=== PATIENT | female | born 1970 | race Caucasian/White ===

== ENCOUNTER 2017-03-21 16:34 | Outpatient (CLI) | payer BC ==
--- NOTE | 2017-03-22 18:21 | Mammography Report ---
DIGITAL SCREENING MAMMOGRAM: 03/21/2017 CLINICAL INDICATION: A 46-year-old with history of late childbearing for screening. COMPARISON: 12/2013, 02/2012, 02/2011. TECHNIQUE: Routine CC and MLO projections as well as bilateral laterally exaggerated craniocaudal vi ews were obtained of the breasts. FINDINGS: Parenchymal tissue within both breasts is heterogeneously dense, which may lower the sensi tivity of mammography; however, there are no dominant masses, suspicious microcalcifications, or seco ndary signs of malignancy. In comparison to the previous studies, there are no significant changes. ASSESSMENT: NO MAMMOGRAPHIC EVIDENCE OF MALIGNANCY. NO SIGNIFICANT INTERVAL CHANGES. RECOMMENDATION: Screening mammography is recommended annually. BIRADS category 1 - negative. STANDARD QUALIFYING STATEMENTS 1. This examination was reviewed with the aid of Computed-Aided Detection (CAD). 2. A negative or benign imaging report should not delay biopsy if clinically suspicious findings are present. Consider surgical consultation if warranted. More than 5% of cancers are not identified b y imaging. 3. Dense breasts may obscure an underlying neoplasm. JOB #: [id number] EXT JOB #:[id number]
== END 2017-03-21 16:35 | disposition home or self-care (01) ==
LOC: DI 16:34
PROVIDERS: ATTEND Physician Assistant Medical
DX: Z12.31 Encounter for screening mammogram for malignant neoplasm of breast (principal)
CPT/HCPCS: 77067

== ENCOUNTER 2018-08-02 17:00 | Outpatient (CLI) | payer BC ==
--- NOTE | 2018-08-03 08:31 | Mammography Report ---
Reason: SCREENING MAMMO Procedure Date: 08/02/2018 Accession Number: [id number] / [id number] Procedure: [facility] - Screening Mammo w/Rodney CPT Code: FULL RESULT: EXAM: Screening Mammo w/Rodney DATE: 08/02/2018 5:23 PM CLINICAL HISTORY: Screening encounter. History of late childbearing. TECHNIQUE: Bilateral CC, laterally exaggerated CC, MLO views were obtained. COMPARISON: 03/21/2017 through 03/03/2011. FINDINGS: The breasts demonstrate heterogeneously dense fibroglandular parenchyma bilaterally. No suspicious masses, clustered microcalcifications, or regions of architectural distortion are identified. IMPRESSION: Negative examination RECOMMENDATION: Routine annual screening unless otherwise clinically indicated. BIRADS CATEGORY 1: Negative STANDARD QUALIFYING STATEMENTS: 1. This examination was not reviewed with the aid of Computer-Aided Detection (CAD). 2. A negative or benign imaging report should not delay biopsy if clinically suspicious findings are present. Consider surgical consultation if warrented. More than 5% of cancers are not identified by imaging. 3. Dense breasts may obscure an underlying neoplasm. 4. This examination was reviewed with the aid of 3D breast imaging (tomosynthesis).
== END 2018-08-02 17:01 | disposition home or self-care (01) ==
LOC: DI 17:00
DX: Z12.31 Encounter for screening mammogram for malignant neoplasm of breast (principal)
CPT/HCPCS: 77063; 77067

== ENCOUNTER 2020-02-20 16:57 | Outpatient (CLI) | payer BC ==
--- NOTE | 2020-02-21 08:55 | MRI Report ---
PROCEDURE: Lower Leg (Tib-Fib) RT W/O INDICATIONS: RIGHT LEG PAIN TECHNIQUE: Noncontrast coronal and sagittal T1 spin echo and STIR; axial T1 spin echo and T2 fast spin echo with fat saturation through the right lower leg. COMPARISON: None. FINDINGS: Image quality: Excellent. Bones: The visualized bone marrow demonstrates normal signal on all sequences. The overlying cortex appears intact. No fractures lines or intra-osseous lesions. Soft tissues: There is slightly increased T2 signal within medial periphery of distal medial head of gastrocnemius muscle on the right side. Rest of the scanned muscles demonstrate normal overall bulk a nd internal signal. Subcutaneous tissues appear normal as well. No soft tissue masses are present. IMPRESSION: 1. No marrow edema. No fracture or dislocation. No evidence of lamar splint. 2. Finding may represent very mild strain/partial thickness tear involving medial periphery of mid to distal right medial head gastrocnemius muscle. No other muscle or tendon signal abnormality. No soft tissue mass or abnormal fluid collection. Reviewed by: Anam Hansen MD on 02/21/2020 8:54 AM PDT Approved by: Anam Hansen MD on 02/21/2020 8:54 AM PDT Station ID: [id number]
== END 2020-02-20 16:58 | disposition home or self-care (01) ==
LOC: DI 16:57
PROVIDERS: ATTEND Physician Assistant Medical
DX: M79.604 Pain in right leg (principal)

== ENCOUNTER 2022-03-19 07:49 | Outpatient (CLI) | payer OTHER, BC ==
--- NOTE | 2022-03-22 10:06 | Mammography Report ---
BILATERAL DIGITAL SCREENING MAMMOGRAM 3D/2D: 03/19/2022 CLINICAL: Routine screening. Comparison is made to exams dated: 07/30/2018 mammogram, 03/21/2017 mammogram, 12/12/2013 mammogram, mammogram, and 03/03/2011 mammogram - [facility]. Both breasts are heterogeneously dense, which may obscure small masses (category c / 51-75% glandular tissue). No significant masses, calcifications, or other findings are seen in either breast. There has been no significant interval change. IMPRESSION: NEGATIVE There is no mammographic evidence of malignancy. A 1 year screening mammogram is recommended. Based on the Tyrer Cuzick model (a risk assessment model) the patients lifetime risk is 11.7% and he r 10 year risk is 3.2%. According to the ACR, ACS, and NCCN guidelines, an annual breast MRI exam kendall ng with mammogram is recommended if the patients lifetime risk is 20% or greater. This exam was interpreted at Station ID: [id number]. NOTE: For mammograms, a report in lay terms will be sent to the patient. Approximately 15% of breast malignancies will not be visualized mammographically. In the management of a palpable breast mass, a negative mammogram must not discourage biopsy of a clinically suspicious lesion. Electronically Signed By: Chay Stone M.D., jr/michelle:03/19/2022 14:53:15 ACR BI-RADS Category 1: Negative 3341F PARENCHYMAL PATTERN: (D) - The breast(s) demonstrate(s) heterogeneously dense fibroglandular jazzy jordan. BI-RADS CATEGORY: (1) - 1 RECOMMENDATION: (ANNUAL) - Recommend routine annual screening mammography. [id number] 1 year screening LATERALITY: (B)
== END 2022-03-19 07:50 | disposition home or self-care (01) ==
LOC: DI 07:49
DX: Z12.31 Encounter for screening mammogram for malignant neoplasm of breast (principal)

== ENCOUNTER 2022-03-26 10:23 | Outpatient (CLI) | payer OTHER, BC ==
--- NOTE | 2022-03-26 15:03 | XRAY Report ---
PROCEDURE: Foot 3 View LT INDICATIONS: LEFT FOOT PAIN TECHNIQUE: 3 views of the foot were acquired. COMPARISON: Left foot radiographs 04/29/2015. FINDINGS: Bones: No acute fractures or dislocations. No suspicious bony lesions. Moderate first MTP joint de generative changes and periarticular lucencies. A plantar calcaneal spur is present. Soft tissues: No tibiotalar joint effusion. Achilles tendon appears normal. IMPRESSION: 1. No acute fracture visualized. If symptoms persist, follow-up radiographs and/or CT or MRI may be h elpful for further evaluation. 2. Moderate first MTP joint degenerative changes present with periarticular lucencies indeterminate f or subchondral cystic change or erosions. Reviewed by: Mk Jerez MD on 03/26/2022 3:01 PM PST Approved by: Mk Jerez MD on 03/26/2022 3:01 PM PST Station ID: [id number]
== END 2022-03-26 10:24 | disposition home or self-care (01) ==
LOC: DI 10:23
PROVIDERS: ATTEND Podiatrist
DX: M19.072 Primary osteoarthritis, left ankle and foot (principal)

== ENCOUNTER 2022-04-14 17:01 | Outpatient (CLI) | payer OTHER, BC ==
--- NOTE | 2022-04-15 08:56 | XRAY Report ---
PROCEDURE: Tib/Fib RT INDICATIONS: RT LEG PAIN TECHNIQUE: 2 views of the tibia and fibula were acquired. COMPARISON: None FINDINGS: Bones: No fractures or dislocations. No suspicious bony lesions. Soft tissues: No suspicious soft tissue calcifications or masses. IMPRESSION: Negative right tibia and fibula. Reviewed by: Wade Puri MD on 04/15/2022 8:54 AM [facility] Approved by: Wade Puri MD on 04/15/2022 8:54 AM [facility] Station ID: [id number]
== END 2022-04-14 17:02 | disposition home or self-care (01) ==
LOC: DI 17:01
PROVIDERS: ATTEND Physician Assistant Medical
DX: M79.604 Pain in right leg (principal); M25.561 Pain in right knee

== ENCOUNTER 2022-04-14 17:02 | Outpatient (CLI) | payer OTHER, BC ==
--- NOTE | 2022-04-15 08:55 | XRAY Report ---
PROCEDURE: Knee 3 View RT INDICATIONS: RT KNEE PAIN TECHNIQUE: 3 views of the right knee(s) were acquired. COMPARISON: None. FINDINGS: Bones: No fractures or dislocations. No suspicious bony lesions. Soft tissues: No joint effusion. No suspicious soft tissue calcifications. IMPRESSION: Negative right knee. Reviewed by: Wade Puri MD on 04/15/2022 8:53 AM [facility] Approved by: Wade Puri MD on 04/15/2022 8:53 AM [facility] Station ID: [id number]
== END 2022-04-14 17:03 | disposition home or self-care (01) ==
LOC: DI 17:02
PROVIDERS: ATTEND Physician Assistant Medical
DX: M25.561 Pain in right knee (principal)

== ENCOUNTER 2022-04-28 13:39 | Outpatient (CLI) | payer OTHER, BC ==
--- NOTE | 2022-04-28 15:54 | MRI Report ---
PROCEDURE: FOOT WO - LT INDICATIONS: LEFT FOOT PAIN TECHNIQUE: Noncontrast sagittal T1 spin echo and T2 fast spin echo with fat saturation, long-axis T1 spin echo a nd T2 fast spin echo with fat saturation, short-axis proton density fast spin echo and T2 fast spin e cho with fat saturation through the forefoot. COMPARISON: Left foot radiograph dated 03/26/2022. FINDINGS: Image quality: Excellent. 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 Brown bcortical cystic areas are noted involving first proximal phalangeal base and medial periphery of fir st metatarsal head with mild adjacent edema. There is also marrow edema and subcortical cystic area involving plantar aspect of third proximal pha langeal base. No other area of abnormal marrow signal is seen. No metatarsal stress fractures. No makenna picious bony lesions. Soft tissues: Soft tissues swelling over medial aspect of first metatarsal head is seen. The visualiz ed plantar foot muscles demonstrate normal signal and bulk. Visualized flexor and extensor tendons a ppear intact, without tenosynovitis. No soft tissue ganglion cysts or bursal fluid collections. Sag ittal images demonstrate no definite plantar plate tears. IMPRESSION: 1. Mild hallux valgus with suggestion of overlying soft tissue bunion and erosive changes along media l cortex of first metatarsal head. 2. Subcortical cystic areas involving first and third proximal phalangeal bases with mild surrounding edema suggestive of changes related to osteoarthritis in first and third MTP joints. 3. No acute left foot fracture or dislocation. No metatarsal stress fractures. 4. Tendons and ligaments of left forefoot and midfoot are grossly intact. No signal abnormality is se en in plantar foot muscles. Reviewed by: Anam Hansen MD on 04/28/2022 3:53 PM PST Approved by: Anam Hansen MD on 04/28/2022 3:53 PM PST Station ID: [id number]
== END 2022-04-28 13:40 | disposition home or self-care (01) ==
LOC: DI 13:39
PROVIDERS: ATTEND Podiatrist
DX: M20.12 Hallux valgus (acquired), left foot (principal)

== ENCOUNTER 2022-05-17 16:36 | Outpatient (CLI) | payer BC | END 2022-05-17 16:37 | disposition home or self-care (01) | LOC: LAB 16:36 | PROVIDERS: ATTEND Obstetrics & Gynecology | DX: R93.89 Abnormal findings on diagnostic imaging of other specified body structures (principal) | CPT/HCPCS: 36415; 83001 ==

== ENCOUNTER 2022-06-09 14:53 | Outpatient (CLI) | payer OTHER ==
[2022-06-09 15:28] LABS: CA 125 8.8 U/mL (0.0-35.0)
[2022-06-09 16:03] LABS: FOLLICLE STIMULATING HORMONE 12.73 mIU/mL
== END 2022-06-09 14:54 | disposition home or self-care (01) ==
LOC: LAB 14:53
PROVIDERS: ATTEND Obstetrics & Gynecology
DX: N83.291 Other ovarian cyst, right side (principal); R93.89 Abnormal findings on diagnostic imaging of other specified body structures
CPT/HCPCS: 36415; 83001; 86304